=== PATIENT | female | born 1940 | race Asian ===

== ENCOUNTER 2018-12-06 13:17 | Emergency (ER) | payer MEDICARE, OTHER ==
[~2018-12-06] VITALS: Ht 144.8 cm; Wt 54.5 kg
[2018-12-06 13:44] LABS: GLUCOSE,POINT OF CARE 224 MG/DL (70-110)
[2018-12-06] MEDS ORDERED: CefTRIAXone 1 GM/DEXTROSE 50 ML IV ONE (15:15)
[2018-12-06] MEDS ORDERED: LACT30L PO (15:20)
[2018-12-06] MEDS ORDERED: MULT-1259 PO (15:20)
[2018-12-06] MEDS ORDERED: CA C1TAB99 PO (15:20)
[2018-12-06] MEDS ORDERED: FURO40I IM (15:23)
[2018-12-06] MEDS ORDERED: CHOL50004 PO (15:23)
[2018-12-06] MEDS ORDERED: ALPR0.255 PO (15:23)
[2018-12-06] MEDS ORDERED: FERR-89 PO (15:23)
[2018-12-06] MEDS ORDERED: RIFA200T2 PO (15:23)
[2018-12-06] MEDS ORDERED: ALEN35TA32 PO (15:23)
[2018-12-06] MEDS ORDERED: PROP10TA73 PO (15:23)
[2018-12-06] MEDS ORDERED: LEVO100 PO (15:23)
[2018-12-06 16:02] LABS: BASOPHILS % (AUTO) 1.3 % (0.0-2.0); EOSINOPHILS % (AUTO) 6.6 % (1.0-6.0); HEMATOCRIT 36.5 % (36-46); LYMPHOCYTES # (AUTO) 0.6 K/uL (1.0-4.8); LYMPHOCYTES % (AUTO) 14.3 % (22.0-44.0); MEAN CORPUSCULAR HEMOGLOBIN 29.8 pg (26.0-34.0); MEAN CORPUSCULAR HGB CONC 32.8 G/dL (31.0-37.0); MEAN CORPUSCULAR VOLUME 91 fL (80-100); MONOCYTES # (AUTO) 0.4 K/uL (0.1-1.0); MONOCYTES % (AUTO) 9.2 % (2.0-9.0); NEUTROPHILS # (AUTO) 2.8 K/uL (1.8-7.7); NEUTROPHILS % (AUTO) 68.6 % (40.0-70.0); RED BLOOD CELL COUNT(AUTO) 4.02 MIL/uL (4.00-5.20); RED CELL DISTRIBUTION WIDTH 12.9 % (11.5-14.5)
[2018-12-06 16:19] LABS: AMMONIA 24 umol/L (11-32); PROTHROMBIN TIME 10.9 SEC (9.4-11.6); TROPONIN I < 0.02 ng/mL (0.00-0.05)
[2018-12-06 16:21] LABS: APPEARANCE,URINE CLEAR (CLEAR); BILIRUBIN,URINE NEGATIVE (NEGATIVE); GLUCOSE, URINE (UA) NEGATIVE (NEGATIVE); KETONES,URINE NEGATIVE (NEGATIVE); LEUKOCYTE ESTERASE ,URINE NEGATIVE (NEGATIVE); NITRATE,URINE NEGATIVE (NEGATIVE); OCCULT BLOOD,URINE NEGATIVE (NEGATIVE); PH,URINE 5.5 (5.0-8.0); PROTEIN,URINE NEGATIVE (NEGATIVE); UROBILINOGEN,URINE 0.2 mg/dL (<=1.0)
[2018-12-06 16:37] LABS: PLATELET COUNT (AUTO) 65 K/uL (150-450)
[2018-12-06 16:38] LABS: CALCIUM, TOTAL 9.2 mg/dL (8.8-10.5); CREATININE 1.47 mg/dL (0.60-1.30); POTASSIUM 4.7 mmol/L (3.5-5.1)
[2018-12-06 16:43] LABS: ALBUMIN 2.8 g/dL (3.4-5.0); BILIRUBIN,TOTAL 0.5 mg/dL (0.1-1.0)
[2018-12-06 17:48] VITALS: BP 159/69
== END 2018-12-06 17:51 | disposition home or self-care (01) ==
LOC: EMS 13:17
DX: R60.0 Localized edema (principal); M79.89 Other specified soft tissue disorders; I10 Essential (primary) hypertension; Z79.899 Other long term (current) drug therapy
CPT/HCPCS: 36415; 71045; 80053; 81003; 82140; 82550; 82962; 83880; 84484; 85025; 85610; 85730; 93005; 96365; 99285; J0696